=== PATIENT | male | born 1980 | race Caucasian/White ===

== ENCOUNTER 2018-09-16 21:59 | Inpatient (IN) | payer OTHER ==
[2018-09-16 23:18] LABS: URINE BLOOD (Dip) POC Negative (NEGATIVE); URINE GLUCOSE (Dip) POC Negative (NEGATIVE); URINE KETONES (Dip) POC Negative (NEGATIVE); URINE LEUKOCYTE EST (Dip) POC Negative (NEGATIVE); URINE NITRITE (Dip) POC Negative (NEGATIVE); URINE TOTAL PROTEIN POC 2+ (NEGATIVE)
[2018-09-16] MEDS: ACETAMINOPHEN 325 MG TAB PO (23:24)
[2018-09-16] MEDS: SODIUM CHLORIDE 0.9% 1L BAG IV* (23:25)
[2018-09-16 23:27] LABS: ADD MAN DIFF? NO
[2018-09-16 23:29] LABS: ADD UMIC YES; UR ASCORBIC ACID NEGATIVE (NEGATIVE); UR BILIRUBIN (Dip) NEGATIVE (NEGATIVE); UR BLOOD (Dip) NEGATIVE (NEGATIVE); UR CLARITY CLEAR (CLEAR); UR COLOR YELLOW (YELLOW); UR GLUCOSE (Dip) NEGATIVE (NEGATIVE); UR KETONES (Dip) NEGATIVE (NEGATIVE); UR LEUKOCYTE ESTERASE (Dip) NEGATIVE Leu/ul (NEGATIVE); UR MUCUS FEW /HPF (NONE SEEN); UR NITRITE (Dip) NEGATIVE (NEGATIVE); UR RBC 3 /HPF (0-5); UR SPECIFIC GRAVITY (Dip) 1.019 (1.003-1.030); UR TOTAL PROTEIN (Dip) 1+ mg/dl (NEGATIVE); UR UROBILINOGEN (Dip) NEGATIVE (NEGATIVE); UR WBC 3 /HPF (0-5)
[2018-09-16 23:30] LABS: WHITE BLOOD COUNT 2.8 10^3/ul (4.8-10.8)
[2018-09-16 23:30] LABS: ABNORMAL IP MESSAGE 1; HEMATOCRIT 37.7 % (42.0-52.0); HEMOGLOBIN 11.9 g/dl (14.0-18.0); LYMPHOCYTES # 0.4 10^3/ul (0.8-2.9); LYMPHOCYTES % 15.5 % (15.0-51.0); MEAN CORPUSCULAR HEMOGLOBIN 26.4 pg (29.0-33.0); MEAN CORPUSCULAR HGB CONC 31.6 g/dl (32.0-37.0); MEAN CORPUSCULAR VOLUME 83.6 fl (82.0-101.0); MEAN PLATELET VOLUME 10.1 fl (7.4-10.4); MONOCYTE # 0.6 10^3/ul (0.3-0.9); MONOCYTES % 20.1 % (0.0-11.0); NEUTROPHIL # 1.8 10^3/ul (1.6-7.5); NEUTROPHILS % 64.4 % (39.0-77.0); PLATELET COUNT 135 10^3/UL (140-415); POSITIVE DIFF @See below; RED BLOOD COUNT 4.51 10^6/ul (4.70-6.10); RED CELL DISTRIBUTION WIDTH 14.2 % (11.5-14.5)
[2018-09-16 23:34] LABS: INR 0.88; PARTIAL THROMBOPLASTIN TIME 33.6 Sec (23.0-35.0); PT RATIO 0.9
[2018-09-16 23:35] LABS: ALANINE AMINOTRANSFERASE 15 IU/L (13-69); ALBUMIN 4.3 g/dl (3.3-4.9); ALBUMIN/GLOBULIN RATIO 1.19; ALKALINE PHOSPHATASE 58 IU/L (42-121); ANION GAP 13 (5-13); ASPARTATE AMINO TRANSFERASE 23 IU/L (15-46); BLOOD UREA NITROGEN 11 mg/dl (7-20); CARBON DIOXIDE 27 mmol/L (21-31); CHLORIDE 98 mmol/L (97-110); CREATININE 0.93 mg/dl (0.61-1.24); Estimated GFR > 60 mL/min (>60); GLUCOSE 115 mg/dl (70-220); POTASSIUM 3.5 mmol/L (3.5-5.1); SODIUM 138 mmol/L (135-144); TOTAL PROTEIN 7.9 g/dl (6.1-8.1)
[2018-09-16 23:44] LABS: AMPHETAMINE/METHAMPHETAMINE Negative (NEGATIVE); BARBITURATES Negative (NEGATIVE); BENZODIAZEPINES Negative (NEGATIVE); CANNABINOIDS Negative (NEGATIVE); COCAINE Negative (NEGATIVE)
[2018-09-16 23:46] LABS: OPIATES Positive (NEGATIVE)
[2018-09-16 23:47] LABS: ETHANOL < 10.0 mg/dl (0-0); TROPONIN-I < 0.012 ng/ml (0.000-0.120)
[2018-09-17] MEDS: ONDANSETRON 4 MG INJ IV (00:15)
[2018-09-17] MEDS: morphine 2 MG INJ IV ×2 (00:15→03:04)
[2018-09-17] MEDS: CEFTRIAXONE 1 GM/50 ML (PMX) 50 ML IVPB (00:16)
[2018-09-17] MEDS: IOHEXOL 300MG/ML 150 ML BTL (00:42)
[2018-09-17] MEDS: SOD CHLORIDE 0.9% 100 ML (00:42)
[2018-09-17] MEDS: AZITHROMYCIN 500MG/NS (PMX) 250 ML IVPB (01:07)
[2018-09-17] MEDS: KETOROLAC 30 MG INJ IV (03:03)
[2018-09-17] MEDS ORDERED: ONDANSETRON 4 MG INJ IV (05:30)
[2018-09-17] MEDS ORDERED: NACL 0.9% 3 ML SYG IV (05:30)
[2018-09-17] MEDS ORDERED: ALBUTEROL/IPRATROPIUM (NEB) 3 ML AMP HHN (05:30)
[2018-09-17] MEDS ORDERED: ACETAMINOPHEN 325 MG TAB PO (05:30)
[2018-09-17] MEDS: SOD CHLORIDE 0.9% 1,000 ML IV ×3 (05:33→16:19)
[2018-09-17] MEDS: AMLODIPINE 10 MG TAB PO (09:15)
[2018-09-17] MEDS: LEVOFLOXACIN 500MG/D5W (PMX) 100 ML IVPB (09:19)
[2018-09-17] MEDS: morphine SULFATE/PF (2 MG/2 ML) SYG IV ×4 (10:27→22:32)
[2018-09-17] MEDS: LORAZEPAM 1 MG TAB PO ×2 (16:18→23:26)
[2018-09-17] MEDS ORDERED: NITROGLYCERIN (SL) 0.4 MG TAB SL (17:00)
[2018-09-17] MEDS ORDERED: hydrALAzine 20 MG INJ IV (17:00)
[2018-09-17 18:54] LABS: CREATINE KINASE 47 IU/L (23-200)
[2018-09-17 19:08] LABS: CK INDEX 0.5; CK-MB < 0.22 ng/ml (0.0-2.4); TROPONIN-I 0.019 ng/ml (0.000-0.120)
[2018-09-17] MEDS: METOPROLOL 25 MG TAB PO (20:22)
[2018-09-18 00:58] LABS: CREATINE KINASE 40 IU/L (23-200)
[2018-09-18 01:11] LABS: CK INDEX 0.6; CK-MB < 0.22 ng/ml (0.0-2.4); TROPONIN-I 0.016 ng/ml (0.000-0.120)
[2018-09-18] MEDS: SOD CHLORIDE 0.9% 1,000 ML IV ×2 (01:16→06:09)
[2018-09-18] MEDS: morphine SULFATE/PF (2 MG/2 ML) SYG IV ×2 (04:48→11:13)
[2018-09-18] MEDS: METOPROLOL 25 MG TAB PO (08:04)
[2018-09-18] MEDS: AMLODIPINE 10 MG TAB PO (08:04)
[2018-09-18] MEDS: LORAZEPAM 1 MG TAB PO (08:04)
[2018-09-18] MEDS: LEVOFLOXACIN 500MG/D5W (PMX) 100 ML IVPB (08:05)
[2018-09-18 09:06] LABS: ADD MAN DIFF? NO
[2018-09-18 09:11] LABS: BASOPHILS % 0.3 % (0.0-2.0); EOSINOPHILS % 0.3 % (0.0-7.0); HEMATOCRIT 33.7 % (42.0-52.0); HEMOGLOBIN 10.8 g/dl (14.0-18.0); LYMPHOCYTES # 0.9 10^3/ul (0.8-2.9); LYMPHOCYTES % 22.8 % (15.0-51.0); MEAN CORPUSCULAR HEMOGLOBIN 26.5 pg (29.0-33.0); MEAN CORPUSCULAR VOLUME 82.6 fl (82.0-101.0); MEAN PLATELET VOLUME 11.7 fl (7.4-10.4); MONOCYTE # 0.5 10^3/ul (0.3-0.9); MONOCYTES % 12.6 % (0.0-11.0); NEUTROPHIL # 2.4 10^3/ul (1.6-7.5); NEUTROPHILS % 63.7 % (39.0-77.0); PLATELET COUNT 126 10^3/UL (140-415); RED BLOOD COUNT 4.08 10^6/ul (4.70-6.10); RED CELL DISTRIBUTION WIDTH 14.2 % (11.5-14.5)
[2018-09-18 09:11] LABS: WHITE BLOOD COUNT 3.8 10^3/ul (4.8-10.8)
[2018-09-18 09:33] LABS: ALANINE AMINOTRANSFERASE 24 IU/L (13-69); ALBUMIN 3.3 g/dl (3.3-4.9); ALBUMIN/GLOBULIN RATIO 1.22; ALKALINE PHOSPHATASE 54 IU/L (42-121); ANION GAP 8 (5-13); ASPARTATE AMINO TRANSFERASE 21 IU/L (15-46); BLOOD UREA NITROGEN 12 mg/dl (7-20); CALCIUM 8.7 mg/dl (8.4-10.2); CARBON DIOXIDE 27 mmol/L (21-31); CHLORIDE 104 mmol/L (97-110); CREATININE 0.66 mg/dl (0.61-1.24); Estimated GFR > 60 mL/min (>60); GLUCOSE 87 mg/dl (70-220); POTASSIUM 3.5 mmol/L (3.5-5.1); SODIUM 139 mmol/L (135-144)
[2018-09-18 09:38] LABS: CREATINE KINASE 34 IU/L (23-200)
[2018-09-18 09:45] LABS: CK INDEX 0.6; CK-MB < 0.22 ng/ml (0.0-2.4); TROPONIN-I < 0.012 ng/ml (0.000-0.120)
[2018-09-18 10:01] LABS: CHOL/HDL RATIO 3.4 RATIO; HDL CHOLESTEROL 27 mg/dl (28-63); LDL CHOLESTEROL,CALCULATED 44 mg/dl; TRIGLYCERIDES 103 mg/dl (0-149)
[2018-09-18 10:01] LABS: CHOLESTEROL 92 mg/dl (100-200)
[2018-09-18] MEDS: morphine 4 MG/ML VIAL IV (15:42)
== END 2018-09-18 19:58 | disposition home or self-care (01) | DRG 871 ==
LOC: FTE 21:59 → TEL 09-17 03:06
DX: A41.9 Sepsis, unspecified organism (principal); J18.9 Pneumonia, unspecified organism; D61.818 Other pancytopenia; M48.02 Spinal stenosis, cervical region; I16.0 Hypertensive urgency; I10 Essential (primary) hypertension; R07.9 Chest pain, unspecified; N20.0 Calculus of kidney; F17.210 Nicotine dependence, cigarettes, uncomplicated; R94.31 Abnormal electrocardiogram [ECG] [EKG]; M54.2 Cervicalgia; S20.219A Contusion of unspecified front wall of thorax, initial encounter; V43.52XA Car driver injured in collision with other type car in traffic accident, initial encounter; Y93.9 Activity, unspecified; Y92.414 Local residential or business street as the place of occurrence of the external cause; Y99.8 Other external cause status; Z87.442 Personal history of urinary calculi
CPT/HCPCS: 36415; 70450; 71045; 71260; 72125; 72142; 74177; 76705; 80053; 80061; 80307; 81001; 81003; 82550; 82553; 83605; 84484; 85025; 85610; 85730; 87040; 87086; 87400; 93005; 93306; 96361; 96365; 96367; 96375; 96376; 99285-25